=== PATIENT | male | born 1980 | race Two or more races ===

== ENCOUNTER 2019-07-18 14:14 | Day surgery (SDC) | payer OTHER | END 2019-07-18 18:25 | disposition home or self-care (01) | LOC: AMB-ENDOS 14:14 | DX: K64.2 Third degree hemorrhoids (principal); Z12.11 Encounter for screening for malignant neoplasm of colon ==

== ENCOUNTER 2021-05-13 09:51 | Day surgery (SDC) | payer OTHER | END 2021-05-13 15:55 | disposition home or self-care (01) | LOC: AMB-ENDOS 09:51 | PROVIDERS: ATTEND Colon & Rectal Surgery | DX: D13.1 Benign neoplasm of stomach (principal); K44.9 Diaphragmatic hernia without obstruction or gangrene; Z20.822 Contact with and (suspected) exposure to COVID-19 ==

== ENCOUNTER 2021-06-29 05:50 | Day surgery (SDC) | payer OTHER | END 2021-06-29 10:45 | disposition home or self-care (01) | LOC: CIR.AMB 05:50 → EDSTATUS 08:00 → CIR.AMB 10:45 | PROVIDERS: ATTEND Colon & Rectal Surgery | DX: K80.10 Calculus of gallbladder with chronic cholecystitis without obstruction (principal); Z20.822 Contact with and (suspected) exposure to COVID-19 ==

== ENCOUNTER 2022-04-11 09:17 | Outpatient (CLI) | payer OTHER | END 2022-04-11 09:28 | disposition home or self-care (01) | LOC: RAD 09:17 | PROVIDERS: ATTEND Orthopaedic Surgery | DX: M54.2 Cervicalgia (principal); M25.512 Pain in left shoulder ==

== ENCOUNTER 2024-09-29 09:03 | Emergency (ER) | payer OTHER ==
[~2024-09-29] VITALS: Ht 182.9 cm; Wt 96.6 kg
[2024-09-29] MEDS ORDERED: CHOLESTYRAMINE R5 GM (09:14)
[2024-09-29] MEDS ORDERED: TRAMADOL HCL 50 MG TABLET PO STA (09:44)
[2024-09-29] MEDS ORDERED: APIXABAN 5 MG TABLET PO STA (09:49)
[2024-09-29 10:38] LABS: HEMATOCRIT 44.9 % (39.0-48.0); HEMOGLOBIN 15.6 g/dL (13-16.00); MEAN CELL VOLUME 86.6 fL (80.0-100.00); MEAN CORPUSCULAR HEMOGLOBIN 30.2 pg (27.00-32.0); MEAN CORPUSCULAR HGB CONC 34.8 g/dl (32.0-36.0); PLATELET COUNT 152 K/uL (150-450); RED BLOOD COUNT 5.19 M/uL (4.00-6.00); RED CELL DISTRIBUTION WIDTH 14.7 % (11.5-14.5)
[2024-09-29 11:03] LABS: CREATININE SERUM 1.09 mg/dL (0.70-1.30); GFR 73.15; POTASSIUM 3.9 mEq/L (3.5-5.1)
[2024-09-29 11:24] LABS: INR 1.03; PARTIAL THROMBOPLASTIN TIME 29.3 SECONDS (22.0-34.0); PROTHROMBIN TIME 11.2 SECONDS (9.0-11.5)
== END 2024-09-29 15:03 | disposition home or self-care (01) ==
LOC: ER 09:05
PROVIDERS: General Practice
DX: M79.662 Pain in left lower leg (principal); I87.2 Venous insufficiency (chronic) (peripheral); Z88.6 Allergy status to analgesic agent